=== PATIENT | male | born 2000 | race Two or more races ===

== ENCOUNTER 2025-01-31 08:14 | Emergency (ER) | payer MEDICAID, SELFPAY ==
[2025-01-31 08:20] VITALS: BP 147/101; PULSE 73; RESP 18; TEMP 36.9; O2SAT 98; BMI 30.4
--- NOTE | 2025-01-31 08:23 | EKG_ITS ---
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
--- NOTE | 2025-01-31 08:23 | XR_ITS ---
Examination: CT abdomen and pelvis without contrast. Coronal 3-D reconstructions. Sagittal 2-D reconstructions. Date and time of exam:January 31, 2025 0838 hrs. Indications: Left upper abdominal pain beginning 2 days ago, history cholecystectomy CTDI: vol (mGy): 10.7 DLP: (mGycm): 674 Technique: Axial images of the abdomen have been obtained, 3 mm slice thickness Intravenous contrast material has not been administered. Low dose protocols were performed. One or more of the following dose reduction techniques were used; automated exposure control, adjustment of the mA and/or KV according to patient size, use of iterative reconstruction technique. Findings: Significant hepatomegaly with severe diffuse fatty infiltration throughout the liver Spleen is not enlarged History given is cholecystectomy but the gallbladder is visualized No pancreatic mass No renal or ureteral calculi, no hydronephrosis Absent appendix No bowel obstruction No diverticulitis Intact urinary bladder No prostatomegaly Impression: No pancreatitis No renal or ureteral calculi, no hydronephrosis No bowel obstruction Absent appendix Moderate hepatomegaly with severe diffuse fatty infiltration throughout the liver
--- NOTE | 2025-01-31 08:28 | PD.EDRME ---
Rapid Medical Screening Exam RME Arrival date/time: 01/31/25 08:14 25-year-old male with surgical history significant for appendectomy and history of methamphetamine abuse presents with concern for left upper abdominal pain chest pain Chief Complaint: Abdominal Pain Time Seen by Provider: 01/31/25 08:22 Vital signs: Vital Signs Temperature 98.4 F 01/31/25 08:20 Pulse Rate 73 01/31/25 08:20 Respiratory Rate 18 01/31/25 08:20 Blood Pressure 147/101 H 01/31/25 08:20 Pulse Oximetry (%) 98 01/31/25 08:20 Oxygen Delivery Method Room Air 01/31/25 08:20
[2025-01-31 09:32] LABS: Basophils # (Auto) 0.1 Thou/mm3 (0.0-0.2); Basophils % (Auto) 1 % (0-2.5); Eosinophils # (Auto) 0.2 Thou/mm3 (0.0-0.5); Eosinophils % (Auto) 2 % (0-10); Hematocrit 48.2 % (41.0-53.0); Hemoglobin 17.3 g/dL (13.5-16.0); Immature Granulocytes % (Auto) 1 % (0-0); Immature Granulocytes Auto 0.04 Thou/mm3 (0.00-0.00); Lymphocytes # (Auto) 2.4 Thou/mm3 (1.0-4.8); Lymphocytes % (Auto) 29 % (10-50); Mean Corpuscular HGB Conc 35.9 g/dl (31.0-37.0); Mean Corpuscular Hemoglobin 30.6 pg (25.0-35.0); Mean Corpuscular Volume 85 fL (80-100); Monocytes # (Auto) 0.8 Thou/mm3 (0.0-0.8); Monocytes % (Auto) 10 % (0-12); Neutrophils # (Auto) 4.9 Thou/mm3 (1.8-7.7); Neutrophils % (Auto) 59 % (37-80); Nucleated Red Blood Cell % 0 /100 WBC (0); Platelet Count 279 Thou/mm3 (140-440); RDW Standard Deviation 38.6 fL (35.1-43.9); Red Blood Count 5.65 Miln/mm3 (4.50-5.90); White Blood Count 8.3 Thou/mm3 (3.8-10.6)
[2025-01-31 09:55] LABS: Alanine Aminotransferase 102 U/L (10-49); Albumin, Serum 4.6 gm/dL (3.5-5.0); Albumin/Globulin Ratio 1.7 (1.2-2.2); Alkaline Phosphatase 96 U/L (46-116); Anion Gap 12 (7-16); BUN/Creatinine Ratio 9 Ratio (12-20); Bilirubin,Total 0.7 mg/dL (0.3-1.2); Blood Urea Nitrogen 8 mg/dL (9-23); Calcium 9.5 mg/dL (8.3-10.6); Calcium (Corrected) 9.5 mg/dL (8.5-10.1); Carbon Dioxide 26.8 mMol/L (20.0-31.0); Chloride 105 mMol/L (98-107); Creatinine (Component) 0.9 mg/dL (0.6-1.3); Estimated Creatinine Clearance 157.5 mL/min (>60); Globulin 2.7 gm/dL (2.3-3.5); Glucose 102 mg/dL (74-106); Lipase 30 U/L (12-53); Osmolality,Calculated 285 (275-295); Potassium 4.1 mMol/L (3.4-5.1); Sodium 144 mMol/L (136-145); Total Protein 7.3 gm/dL (5.7-8.2); Troponin I < 0.002 ng/mL (0.0-0.045); eGFR > 60 See Note
[2025-01-31 10:28] LABS: Collection Type, Urine Clean Catch; Squamous Epithelial Cell,Urine 0 /hpf (0-5); WBC,Urine 0 /hpf (0-5)
[2025-01-31 10:36] LABS: Bilirubin,Urine Negative (Negative); Blood,Urine Negative (Negative); Clarity,Urine Clear (Clear/Hazy); Color,Urine Lt-Yellow (Lt Yel-Yel); Culture Indicated,Urine Not Indicated; Glucose, Urine Negative (Negative); Ketones,Urine Negative (Negative); Leukocyte Esterase,Urine Negative (Negative); Nitrite,Urine Negative (Negative); PH,Urine 5.5 (5.0-7.0); Protein,Urine Negative (Neg - Trace); RBC,Urine < 1 /hpf (0-3); Specific Gravity,Urine 1.025 (1.001-1.035); Urobilinogen,Urine Negative mg/dL (0.0-1.0)
[2025-01-31 10:42] LABS: Amphetamine/Methamp Scrn,U Negative (Negative); Barbiturate Screen,Urine Negative (Negative); Benzodiazepines Screen,Urine Negative (Negative); Benzoylecgonine Screen, Ur Negative (Negative); Fentanyl Screen,Urine Negative (Negative); Opiate Screen,Urine Negative (Negative); THC Screen,Urine Negative (Negative)
[2025-01-31 11:23] VITALS: BP 148/87; PULSE 65; RESP 18; TEMP 36.9; O2SAT 99
--- NOTE | 2025-01-31 11:29 | EDNOTE_ITS ---
ED Abdominal Pain RME/HPI General Chief Complaint: Abdominal Pain Stated complaint: LUQ ABD PAIN Time seen by provider: 01/31/25 08:22 Arrival date/time: 01/31/25 08:14 This is a 25-year-old male that comes in with complaints of left-sided abdominal pain that is been on and off for the past few days. Patient has a history of alcohol use and also methamphetamine use. Patient states he has not been doing drugs or drinking alcohol recently. Patient has a history of an appendectomy. Patient denies any fever, nausea, vomiting, diarrhea. Patient denies any constipation. Patient denies any runny nose cough sore throat fever headache. RME / HPI RME / HPI narrative: 01/31/25 08:14 25-year-old male with surgical history significant for appendectomy and history of methamphetamine abuse presents with concern for left upper abdominal pain chest pain Related Data Previous Rx's ?Medication ?Instructions ?Recorded hydrocodone 5 mg-acetaminophen 325 1 tab PO Q6H #20 ta bs 04/27/24 mg tablet Allergies Allergy/AdvReac Type Severity Reaction Status Date / Time No Known Allergies Allergy Verified 04/26/24 20:00 Review of Systems Review of Systems Systems Reviewed: All systems reviewed, normal except as documented Past Medical History Past Medical History NEUROLOGIC: Negative Seizures CARDIAC: Negative Cardiac Disorders or Congestive Heart Failure RESPIRATORY: Positive Asthma; Negative Chronic Obstructive Pulmonary Disease (COPD) GENITOURINARY: Negative Renal Disease ENDOCRINE: Negative Diabetes Mellitus Type 1 or Diabetes Mellitus Type 2 HEMATOLOGIC: Negative Sickle Cell Disease OTHER HISTORY: Negative Blood Transfusions or Anesthesia Reactions Social History SMOKING STATUS: Current some day smoker ED Exam Narrative Physical exam: VITAL SIGNS: Reviewed. GENERAL APPEARANCE: Alert and interactive, follows commands, no acute distress, HEAD AND FACE: Non-traumatic. ENT: PERRL, pink conjunctivitis, eyelid no trauma, Mucous membrane moist. NECK: Supple, nontender, no nuchal rigidity. CHEST: No tenderness, no crepitus, no paradoxical movement, no retractions. LUNGS: Clear, well ventilated, symmetric, no rales, no wheezing, no ronchi, no stridor, good breath sounds bilaterally. HEART: Regular rate, regular rhythm, no murmur, no gallops. ABDOMEN: Soft, nondistended, no guarding, nontender to palpation, no rebound, no masses NEUROLOGICAL: Gross motor function intact sensory function intact, Appropriate for age. MUSCULOSKELETAL: low back nontender, full range of motion. EXTREMITIES: No redness no swelling no skin breakdown on bilateral foot and leg. Distal neurovascular status intact bilateral foot SKIN: Color pink, dry, no rash, no lacerations, no abrasions, no contusions. Course Orders Category Date Time Status EKG (ED ONLY) *Do not use* NOW Care 01/31/25 08:[address] abdomen pelvis wo con Stat Exams 01/31/25 08:23 Completed EKG (ED Only) Stat Exams 01/31/25 08:23 Draft CBC Stat Lab 01/31/25 09:11 Completed Comprehensive Metabolic Panel Stat Lab 01/31/25 09:11 Completed Drug Screen,Urine Stat Lab 01/31/25 09:25 Completed Lipase Stat Lab 01/31/25 09:11 Completed Troponin I Stat Lab 01/31/25 09:11 Completed UA, C/S IF [Urinalysis, C/S if Indicated] Stat Lab 01/31/25 09:30 Completed HYDROcodone*/APAP 5/325 [[place] 5/325] Med 01/31/25 11:46 Discontinued 1 tab PO X1 ONE Ketorolac Inj [Toradol Inj] Med 01/31/25 11:46 Discontinued 60 mg IM X1 ONE Metoclopramide Inj [Reglan Inj] Med 01/31/25 11:46 Discontinued 10 mg IM X1 ONE Vital Signs Vital signs: Vital Signs Temperature 98.4 F 01/31/25 08:20 Pulse Rate 73 01/31/25 08:20 Respiratory Rate 18 01/31/25 08:20 Blood Pressure 147/101 H 01/31/25 08:20 Pulse Oximetry (%) 98 01/31/25 08:20 Oxygen Delivery Method Room Air 01/31/25 08:20 Procedures -ED EKG Interpretation #1: Date of EK01/31/25 Time of EK:24 Rate: 71 Interpretation: Interpreted by me (sinus rhythm ) EKG Impression: No ectopy, Normal QRS and Normal intervals Abdominal Pain MDM MDM Narrative MDM Narrative:: Findings: Significant hepatomegaly with severe diffuse fatty infiltration throughout the liver Spleen is not enlarged History given is cholecystectomy but the gallbladder is visualized No pancreatic mass No renal or ureteral calculi, no hydronephrosis Absent appendix No bowel obstruction No diverticulitis Intact urinary bladder No prostatomegaly Impression: No pancreatitis No renal or ureteral calculi, no hydronephrosis No bowel obstruction Absent appendix Moderate hepatomegaly with severe diffuse fatty infiltration throughout the liver Reviewed EKG with . Read says st elevation. he believes it is repolarization. NO acute MD. Reviewed patient labs. wbc 8.3, hgb and hct of 17.3/48.2. bun and creatinine 8/0.9. total bili 0.7, alt, 102, and alk phos of 96, t troponin less than 0.002 lipase is 30 urine negative for acute infection drug screen negative. Patient given toradol, norco, and reglan for pain. Instructed patient to come back to the emergency room if symptoms change or worsen. Patient comfortable with plan of care. I spoke to patient at length. Today patient had Ct scan There was no acute fracture seen. Exam appeared unremarkable. I explained to patient at length that if there was continued pain to this area or worsened to come back to ED or see primary provider for more xrays or further testing such as CT scan or MRI. X rays are not perfect and sometimes serial films needed. Patient verbalized understanding. Patient states they will follow up with primary provider in 1-2 days or come back to ED if symptoms change or worsen. Medications / Prescriptions Medication administrations:: Medication Administration History Discontinued Medications Hydrocodone Bitart/Acetaminophen (Hydrocodone/Apap 5/325 Tablet) 1 tab PO X1 ONE Stop: 01/31/25 11:47 Last Admin: 01/31/25 12:09 Dose: 1 tab Documented By: ABISAI Ketorolac Tromethamine (Ketorolac Inj 60 Mg/2 Ml Vial) 60 mg IM X1 ONE Stop: 01/31/25 11:47 Last Admin: 01/31/25 12:08 Dose: 60 mg Documented By: ABISAI Metoclopramide HCl (Metoclopramide Inj 5 Mg/Ml Vial 2 Ml) 10 mg IM X1 ONE; Protocol Stop: 01/31/25 11:47 Last Admin: 01/31/25 12:08 Dose: 10 mg Documented By: ABISAI Discharge Plan Plan Patient Disposition: HOME (Self Care) Patient condition on transfer: Stable Prescriptions/Referrals Prescriptions/Med Rec: No Action hydrocodone-acetaminophen 5-325 mg tablet 1 tab PO Q6H MDD 4 Qty: 20 0RF Referrals: No Primary/Family,Physician [Primary Care Provider] - In 1 week Problem List Clinical Impression: Abdominal pain Patient/Caregiver Discharge Instructions Discharge Activity: activity as tolerated Education Materials: Abdominal Pain Additional Instructions: Shavonne un anoop con gu medico de cabecera en las proximas 24-48 horas. Regrese a la sara de emergencias si hay evidencia de que los signos o sintomas empeoran. Print Language: Czech Stand Alone Forms: Angela Award Info., Patient Portal Info Letter PA/BEEF GRADER Supervising Physician PA/BEEF GRADER Supervising Physician: verito
[2025-01-31] MEDS: KETOROLAC INJ 60 MG/2 ML VIAL IM (12:08)
[2025-01-31] MEDS: METOCLOPRAMIDE INJ 5 MG/ML VIAL 2 ML 10 MG IM (12:08)
[2025-01-31] MEDS: HYDROcodone/APAP 5/325 TABLET 1 TAB PO (12:09)
== END 2025-01-31 12:12 | disposition home or self-care (01) ==
PROVIDERS: Nurse Practitioner Primary Care; Emergency Provider Family Medicine
DX: K76.0 Fatty (change of) liver, not elsewhere classified (principal); R94.31 Abnormal electrocardiogram [ECG] [EKG]
CPT/HCPCS: 36415; 74176; 80053; 80307; 81001; 83690; 84484; 85025; 93005; 96372; 99284; J1885; J2765; A9270